=== PATIENT | female | born 1980 | race Caucasian/White ===

== ENCOUNTER 2017-06-08 01:34 | Emergency (ER) | payer SELFPAY ==
[~2017-06-08] VITALS: Ht 157.5 cm; Wt 68.0 kg
[~2017-06-08 01:34] MED LIST: CIPR0.3S2 LEFT EYE
[2017-06-08 01:35] VITALS: BP 116/79; PULSE 85; RESP 16; TEMP 98.1; O2SAT 97
--- NOTE | 2017-06-08 01:43 | PD ---
HPI Chief Complaint: Chest Pain Time Seen by Provider: 01:36 Travel History International Travel<30 days: No Contact w/Intl Traveler<30days: No Traveled to known affect area: No History of Present Illness HPI 37-year-old female presents to the emergency department by EMS transport from home for complaint of shortness of breath with some chest tightness associated with deep breathing and with coughing. Patient has had posttussive emesis. Patient has been sick for approximate 5-7 days. Patient's had subjective fever and chills. EMS transported the patient and gave her one time dose of Zofran for complaint of nausea no nebulize treatments were administered as patient had used a friend's albuterol inhaler just prior to arrival to EMS with some symptomatic relief. Patient was noted by EMS to have a normal range blood sugar and EKG was revealed no acute injury pattern change. Patient does admit to occasional tobacco use. Patient denies any chronic medical concerns and no prior history of asthma or bronchitis. Patient did not have flu vaccine for this season. Patient is unable to identify exacerbating or alleviating factors. [facility] Past Medical History Narrative Medical Irregular menses, ovarian cysts, appendectomy tonsillectomy tobacco use alcohol use marijuana use; nursing notes reviewed Diminished Hearing: No Reproductive: Yes (irreg periods,keloids) Immunizations Current: Yes Tetanus Vaccination: Never Vaccinated Influenza Vaccination: No ?: Unknown LMP: 05/26/17 : 2 Para: 0 Miscarriage: 2 Ovarian Cysts: Yes Past Surgical History Abdominal Surgery: Yes (cyst removal,exploratory lap) Appendectomy: Yes Tonsillectomy: Yes Social History Alcohol Use: Yes (socially) Tobacco Use: Yes Substance Use: Yes (MARIJUANA) Allergies-Medications (Allergen,Severity, Reaction): Coded Allergies: No Known Allergies (Verified Adverse Reaction, Unknown, 06/08/17) Reported Meds & Prescriptions Reported Meds & Active Scripts Active Review of Systems Except as stated in HPI: all other systems reviewed are Neg General / Constitutional: Positive: Fever (subjective), No: Chills HENT: No: Sore Throat, Congestion Cardiovascular: Positive: Chest Pain or Discomfort (with cough) Respiratory: Positive: Cough, Shortness of Breath, No: Orthopnea, Hemoptysis Gastrointestinal: Positive: Vomiting (post tussive) Genitourinary: No: Dysuria, Pelvic Pain, Discharge, Vaginal Bleeding Musculoskeletal: No: Myalgias, Arthralgias Skin: No Rash Neurologic: No: Weakness Psychiatric: No: Anxiety Hematologic/Lymphatic: No: Lymph Node Enlargement Physical Exam Narrative GENERAL: Well-developed well-nourished female in no acute distress no respiratory distress SKIN: Warm and dry. HEAD: Normocephalic. EYES: No scleral icterus. No injection or drainage. NECK: Supple, trachea midline. No JVD or lymphadenopathy. CARDIOVASCULAR: Regular rate and rhythm without murmurs, gallops, or rubs. RESPIRATORY: Breath sounds equal bilaterally decreased. No accessory muscle use. GASTROINTESTINAL: Abdomen soft, non-tender, nondistended. MUSCULOSKELETAL: No cyanosis, or edema. BACK: Nontender without obvious deformity. No CVA tenderness. Data Data Last Documented VS Vital Signs Date Time Temp Pulse Resp B/P (MAP) Pulse Ox O2 Delivery O2 Flow Rate FiO2 06/08/17 01:47 18 06/08/17 01:47 98 Nasal Cannula 2.00 06/08/17 01:35 98.1 85 116/79 (91) Orders Orders Complete Blood Count With Diff (06/08/17 01:36) Basic Metabolic Panel (Bmp) (06/08/17 01:36) Act Partial Throm Time (Ptt) (06/08/17 01:36) Prothrombin Time / Inr (Pt) (06/08/17 01:36) Magnesium (Mg) (06/08/17 01:36) Ckmb (Isoenzyme) Profile (06/08/17 01:36) Troponin I (06/08/17 01:36) Iv Access Insert/Monitor (06/08/17 01:36) Electrocardiogram (06/08/17 01:36) Ecg Monitoring (06/08/17 01:36) Oximetry (06/08/17 01:36) Oxygen Administration (06/08/17 01:36) Sodium Chloride 0.9% Flush (Ns Flush) (06/08/17 01:45) Albuterol-Ipratropium Neb (Duoneb Neb) (06/08/17 01:45) Ed Urine Pregnancytest Poc (06/08/17 01:36) Beta Hcg (Quant/Titer) (06/08/17 01:57) Acetaminophen (Tylenol) (06/08/17 02:30) Labs Laboratory Tests Test 06/08/17 01:45 White Blood Count 11.8 TH/MM3 Red Blood Count 3.97 MIL/MM3 Hemoglobin 13.8 GM/DL Hematocrit 38.5 % Mean Corpuscular Volume 97.0 FL Mean Corpuscular Hemoglobin 34.7 PG Mean Corpuscular Hemoglobin Concent 35.8 % Red Cell Distribution Width 12.4 % Platelet Count 374 TH/MM3 Mean Platelet Volume 6.3 FL Neutrophils (%) (Auto) 80.6 % Lymphocytes (%) (Auto) 13.0 % Monocytes (%) (Auto) 4.4 % Eosinophils (%) (Auto) 1.4 % Basophils (%) (Auto) 0.6 % Neutrophils # (Auto) 9.5 TH/MM3 Lymphocytes # (Auto) 1.5 TH/MM3 Monocytes # (Auto) 0.5 TH/MM3 Eosinophils # (Auto) 0.2 TH/MM3 Basophils # (Auto) 0.1 TH/MM3 CBC Comment DIFF FINAL Differential Comment Prothrombin Time 10.4 SEC Prothromb Time International Ratio 0.9 RATIO Activated Partial Thromboplast Time 25.2 SEC Blood Urea Nitrogen 8 MG/DL Creatinine 0.67 MG/DL Random Glucose 105 MG/DL Calcium Level 8.1 MG/DL Magnesium Level 1.9 MG/DL Sodium Level 138 MEQ/L Potassium Level 3.7 MEQ/L Chloride Level 107 MEQ/L Carbon Dioxide Level 23.2 MEQ/L Anion Gap 8 MEQ/L Estimat Glomerular Filtration Rate 98 ML/MIN Total Creatine Kinase 35 U/L Troponin I LESS THAN 0.02 NG/ML Human Chorionic Gonadotropin, Quant 7595 MIU/ML MDM Medical Decision Making Medical Screen Exam Complete: Yes Emergency Medical Condition: Yes Medical Record Reviewed: Yes Interpretation(s) EKG normal sinus rhythm rate 80 normal axis and intervals no acute ST elevation or injury pattern or ectopy noted CBC & BMP Diagram 06/08/17 01:45 Calcium Level 8.1 L, Magnesium Level 1.9 Vital Signs Date Time Temp Pulse Resp B/P (MAP) Pulse Ox O2 Delivery O2 Flow Rate FiO2 06/08/17 01:47 18 06/08/17 01:47 98 Nasal Cannula 2.00 06/08/17 01:35 98.1 85 16 116/79 (91) 97 poc hcg: positive; quant hc, elevated Differential Diagnosis Dyspnea, bronchitis, pneumonia, viral syndrome, atypical chest pain, ACS, SC, PE , atypical biliary colic Narrative Course Patient placed on surveillance system monitor and continuous pulse oximetry IV access obtained specimens collected and sent for resulting DuoNeb updrafts ordered and EKG performed which reveals no acute injury pattern @ 0200 POC hcg positive --patient reports irregular menses and reported to RN "line of cocaine use a few days ago; none tonight" Following updraft treatment patient reports that her breathing symptoms have markedly improved and sensation of tightness with deep breathing has resolved. Bedside ultrasound after obtaining consent from patient using curvilinear probe in the sagittal and transverse views does not reveal an obvious intrauterine however quantitative hCG is only 7595 which corresponds to the 3-4 weeks . Patient states her next menses would have been due on Tuesday. Patient's had no pelvic pain no vaginal bleeding no vaginal discharge. Review of medical records indicates that patient blood type is (A+) ; patient is refusing pelvic exam. At 2:56 AM patient is stable for outpatient management close follow-up with primary care provider and [facility]IST and encouraged to start vitamins patient is also informed that she will need a repeat quantitative hCG in 48 hours. Patient is stable for outpatient management. Diagnosis Primary Impression: Bronchitis Additional Impression: Qualified Codes: Z3A.01 - Less than 8 weeks gestation of Referrals: Elevator Troubleshooter call for appointment Primary Care Physician call for appointment Patient Instructions: General Instructions Additional Instructions: Take vitamins daily Recommend repeat quantitative hCG in 48 hours Follow-up with marketing graphics specialist call office in a.m. to schedule follow-up appointment Follow-up with primary care provider or clinic Complete course of antibiotic as prescribed Use inhaler as prescribed as needed for wheezing or shortness of breath May take acetaminophen/Tylenol as needed for minor discomfort/pain or for fever 100.4F or greater; do NOT take ibuprofen/Advil/Motrin/Naprosyn/naproxen/Aleve while you are Do not smoke cigarettes or use any substances Return to the emergency department for any concerns or change in condition Increase fluid hydration Med/Other Pt SpecificInfo: Prescription(s) given Scripts Cephalexin (Keflex) 500 Mg Capsule 500 MG PO Q6H for Infection for 7 Days, #28 CAP 0 Refills Prov: Josie Noland MD 06/08/17 Albuterol 8.5 GM Inh (Proair Hfa 8.5 GM Inh) 90 Mcg/Act Aer 2 PUFF INH Q4-6H Y for SHORTNESS OF BREATH, #1 INHALER 0 Refills 108 mcg/actuation Prov: Josie Noland MD 06/08/17 Disposition: 01 DISCHARGE HOME Condition: Stable Josie Noland MD Jun 08, 2017 01:43
[2017-06-08] MEDS ORDERED: SODIUM CHLORIDE 0.9% FLUSH 10 ML FLUSH IVF PRN (01:45)
[2017-06-08 01:47] VITALS: RESP 18
[2017-06-08] MEDS: RESP: ALBUTEROL 2.5 MG/IPRATROPIUM 0.5 MG NEB (SCH) INH ×2 (02:00→02:24)
[2017-06-08 02:05] LABS: AUTOMATED NEUTROPHIL # 9.5 TH/MM3 (1.8-7.7); BASOPHIL # 0.1 TH/MM3 (0-0.2); BASOPHIL % 0.6 % (0.0-2.0); EOSINOPHIL # 0.2 TH/MM3 (0-0.4); EOSINOPHIL % 1.4 % (0.0-4.0); HEMATOCRIT 38.5 % (35.0-46.0); HEMO FLAGS DIFF FINAL; LYMPHOCYTE # 1.5 TH/MM3 (1.0-4.8); MEAN CORPUSCULAR HEMOGLOBIN 34.7 PG (27.0-34.0); MEAN CORPUSCULAR HGB CONC 35.8 % (32.0-36.0); MONO % 4.4 % (0.0-8.0); NEUT % 80.6 % (16.0-70.0); PLATELET COUNT 374 TH/MM3 (150-450); RED BLOOD COUNT 3.97 MIL/MM3 (4.00-5.30); RED CELL DISTRIBUTION WIDTH 12.4 % (11.6-17.2); WHITE BLOOD COUNT 11.8 TH/MM3 (4.0-11.0)
[2017-06-08 02:07] LABS: ANION GAP 8 MEQ/L (5-15); BICARBONATE 23.2 MEQ/L (21.0-32.0); BLOOD UREA NITROGEN 8 MG/DL (7-18); CHLORIDE 107 MEQ/L (98-107); GLOMERULAR FILTRATION RATE 98 ML/MIN (>89); MAGNESIUM 1.9 MG/DL (1.5-2.5); POTASSIUM 3.7 MEQ/L (3.5-5.1); SODIUM (NA) 138 MEQ/L (136-145)
[2017-06-08 02:12] LABS: CREATINE KINASE 35 U/L (26-192)
[2017-06-08 02:17] LABS: APTT (PATIENT) 25.2 SEC (24.3-30.1); INTERNATIONAL NORMALIZED RATIO 0.9 RATIO; PROTHROMBIN TIME - PATIENT 10.4 SEC (9.8-11.6)
[2017-06-08] MEDS ORDERED: ACETAMINOPHEN 325 MG TAB PO ONE (02:30)
[2017-06-08 02:34] LABS: BETA HCG QUANT 7595 MIU/ML (0-5)
[2017-06-08] MEDS ORDERED: CEPH-460 PO (02:58)
[2017-06-08] MEDS ORDERED: ALBUAER3 INH (02:58)
[2017-06-08 04:19] VITALS: RESP 16
--- NOTE | 2017-06-10 08:49 | EKG ---
Date Performed: 06/08/2017 Time Performed: 01:36:46 PTAGE: 37 years EKG: Sinus rhythm NORMAL ECG PREVIOUS TRACING : 01/15/2011 19.17 DOCTOR: Storm Auguste Interpretating Date/Time 06/10/2017 08:47:13
== END 2017-06-08 08:53 | disposition home or self-care (01) ==
LOC: NEPC 01:34
DX: O99.511 Diseases of the respiratory system complicating pregnancy, first trimester (principal); J40 Bronchitis, not specified as acute or chronic; Z3A.08 8 weeks gestation of pregnancy; Z72.0 Tobacco use
CPT/HCPCS: 80048; 82550; 83735; 84484; 84702; 84703; 85025; 85610; 85730; 93005; 94664; 99285